=== PATIENT | female | born 1950 | race Two or more races ===

== ENCOUNTER 2022-01-22 12:08 | Emergency (ER) | payer OTHER ==
[~2022-01-22] VITALS: Ht 160 cm; Wt 68.0 kg
[2022-01-22] MEDS ORDERED: TIROSINT13 MCG PO (12:22)
[2022-01-22] MEDS ORDERED: AMLODIPINE-OLM1 EAC2 PO (12:22)
== END 2022-01-22 16:09 | disposition home or self-care (01) ==
LOC: ER 12:08
DX: U07.1 COVID-19 (principal); I10 Essential (primary) hypertension